=== PATIENT | male | born 1990 | race Caucasian/White ===

== ENCOUNTER 2017-09-18 20:23 | Emergency (ER) | payer OTHER ==
[~2017-09-18] VITALS: Ht 188 cm; Wt 127.3 kg
[2017-09-18] MEDS ORDERED: ZYRTEC10 M3 PO (21:12)
[2017-09-18] MEDS ORDERED: FISH OIL1 IU PO (21:14)
[2017-09-18] MEDS ORDERED: MEN'S MULTI-VI1 EACH PO (21:14)
[2017-09-18] MEDS ORDERED: KETOROLAC10 MG PO (22:54)
[2017-09-18 23:08] VITALS: BP 125/78
== END 2017-09-18 23:08 | disposition home or self-care (01) ==
LOC: ED 20:23
DX: S76.112A Strain of left quadriceps muscle, fascia and tendon, initial encounter (principal); S80.812A Abrasion, left lower leg, initial encounter; S80.811A Abrasion, right lower leg, initial encounter; W01.10XA Fall on same level from slipping, tripping and stumbling with subsequent striking against unspecified object, initial encounter; Y92.39 Other specified sports and athletic area as the place of occurrence of the external cause
CPT/HCPCS: J1885